=== PATIENT | female | born 1985 | race Caucasian/White ===

== ENCOUNTER → 2024-11-04 08:24 | Outpatient (REF) | payer BC, SELFPAY | LOC: HWRAD 08:24 | PROVIDERS: ATTENDING PHYSICIAN Urology; FAMILY PHYSICIAN Student in an Organized Health Care Education/Training Program | DX: R39.9 Unspecified symptoms and signs involving the genitourinary system (principal); R93.89 Abnormal findings on diagnostic imaging of other specified body structures; N39.0 Urinary tract infection, site not specified | CPT/HCPCS: 74176 ==